=== PATIENT | male | born 1935 | race Caucasian/White ===

== ENCOUNTER → 2021-04-30 07:36 | Outpatient (CLI) | payer MEDICARE, SELFPAY ==
[2021-04-23 09:27] VITALS: BMI 25.4
--- NOTE | 2021-04-30 07:40 | ECHOD_ITS ---
Reason For Study: Chest pain Procedure This was a 2D Doppler, Color Flow transthoracic echocardiogram. Exam performed in department. Left Ventricle Normal LV size. Left ventricular systolic function is normal. The estimated ejection fraction is 60 %. Stage 1 diastolic dysfunction. No regional wall motion abnormalities noted. Right Ventricle Normal RV size. Normal systolic function. Atria Normal left atrium. Normal right atrium. Mitral Valve There is mild mitral annular calcification. Trivial mitral valve insufficiency. Tricuspid Valve Normal tricuspid valve. Mild tricuspid valve insufficiency. Pulmonary artery systolic pressure is 30 mmHg. Aortic Valve Trisinus/trileaflet aortic valve. Mild focal aortic valve calcification. Pulmonic Valve Normal pulmonic valve. Great Vessels Normal aortic root. The pulmonary artery is normal size. Normal inferior vena cava. Pericardium/Pleural No pericardial effusion. MMode/2D Measurements & Calculations LVIDd: 4.4 cm IVSd: 1.1 cm Ao root diam: 3.4 cm LVIDs: 2.3 cm LVPWd: 1.1 cm RVDd: 3.3 cm FS: 46.6 % LAV(MOD-bp): 41.4 ml LVAd ap4: 31.1 cm2 SV(MOD-sp4): 59.1 ml LAV(MOD-bp) Indexed: 20.0 ml/m2 LVLd ap4: 8.2 cm LAV(MOD-sp2): 33.1 ml EDV(MOD-sp4): 93.3 ml LAV(MOD-sp4): 52.3 ml EDV(sp4-el): 99.4 ml LVAs ap4: 16.5 cm2 LVLs ap4: 6.7 cm ESV(MOD-sp4): 34.2 ml ESV(sp4-el): 34.5 ml EF(MOD-sp4): 63.3 % EF(sp4-el): 65.3 % SV(sp4-el): 64.9 ml LA A4 area: 18.6 cm2 LA dimension(2D): 4.2 cm RA A4 area: 15.5 cm2 Doppler Measurements & Calculations MV E max willis: 82.6 cm/sec Lat Peak E' Willis: 11.4 cm/sec Med Peak E' Willis: 7.4 cm/sec MV A max willis: 107.4 cm/sec E/E' lat: 7.2 E/E' med: 11.1 MV E/A: 0.77 Ao V2 max: 157.8 cm/sec LV V1 max: 112.2 cm/sec PA V2 max: 95.7 cm/sec Ao max P.0 mmHg LV V1 max P.0 mmHg TR max willis: 256.2 cm/sec TR max P.3 mmHg ECHO/Echo Complete Interpretation Summary Normal LV size. Left ventricular systolic function is normal. The estimated ejection fraction is 60 %. Stage 1 diastolic dysfunction. Mild tricuspid valve insufficiency. Pulmonary artery systolic pressure is 30 mmHg. Ordering Physician: Mani Alvares Referring Physician: Francisco Juarez Performed By: Rimma Nava RDCS
== END ==
PROVIDERS: PCP Family Medicine; Referring Provider Internal Medicine Cardiovascular Disease; Visit Provider Internal Medicine Cardiovascular Disease
DX: I48.0 Paroxysmal atrial fibrillation (principal)
CPT/HCPCS: 93306

== ENCOUNTER 2021-05-05 08:54 | Day surgery (SDC) | payer MEDICARE, SELFPAY ==
[2021-04-23 09:27] VITALS: BMI 25.4
--- NOTE | 2021-04-23 10:44 | RAD_ITS ---
STUDY: X-RAY CHEST REASON FOR EXAM: Male, 85 years old. Irregular heartbeat TECHNIQUE: Frontal and lateral views of the chest COMPARISON: None. FINDINGS: The lungs are clear and expanded. There is no demonstrated pleural abnormality. Normal size heart. Normal mediastinum and ladarius. Normal visualized pulmonary arteries. Normal visualized aortic arch and descending thoracic aorta. Normal visualized thoracic spine. Normal visualized ribs, clavicles, and shoulders. There is no demonstrated abnormality of the visualized soft tissue structures of the upper abdomen. RAD/Chest PA and Lateral IMPRESSION: Normal x-ray examination of the chest. Electronically Signed: Percy Peralta MD at 17:00 EDT Tel , Service support ,
[2021-04-23 11:20] LABS: Absolute Lymphocyte Count 2.33 X10^3/uL (0.83-4.51); Absolute Neutrophil Count 3.6 X10^3/uL (2.0-7.7); Basophil# 0.04 X10^3/uL; Basophil% 0.6 % (0-1); Eosinophil# 0.25 X10^3/uL; Eosinophils% 3.7 % (0-5); Hematocrit 41.8 % (40-54); Hemoglobin 13.7 g/dL (13.0-16.5); Lymphocyte # 2.33 X10^3/ul (0.83-4.51); Lymphocyte % 34.8 % (19-41); Mean Corp Hgb Conc 32.8 g/dL (32-36); Mean Corpuscular Hgb 31.6 pg (27.0-32.0); Mean Corpuscular Volume 96.5 fL (80-94); Mean Platelet Vol. 9.2 fl (6.2-12.0); Monocyte# 0.48 X10^3/uL; Monocyte% 7.2 % (0-10); NRBC Flagged by Analyzer 0 % (0-5); Neutrophil # 3.58 X10^3/uL (2.7-7.7); Neutrophil % 53.6 % (47-70); Platelet Count 194 K/mm3 (150-450); RBC Distribution Width CV 13.8 % (11.6-14.6); RBC Distribution Width SD 48.9 fl (35.1-43.9); Red Blood Count 4.33 M/mm3 (4.6-6.2); White Blood Count 6.7 K/mm3 (4.4-11.0)
[2021-04-23 11:46] LABS: Anion Gap 3 (5-15); BUN 19 mg/dL (7-18); BUN/Creat Ratio 27.5 RATIO (10-20); Calcium,Total 9.1 mg/dL (8.5-10.1); Chloride 107 mmol/L (98-107); Creatinine, Serum 0.69 mg/dL (0.70-1.30); EST Glomerular Filtration Rate 116 mL/min (>60); Est Glom Filt Rate - Afr Amer 140 mL/min (>60); Glucose 144 mg/dL (74-106); Potassium 4.2 mmol/L (3.5-5.1); Sodium Level 140 mmol/L (136-145)
[2021-05-02 08:17] VITALS: BMI 25.4
--- NOTE | 2021-05-05 10:35 | CL.D_ITS ---
Patient Name: MANUELITO BAI Study Date: 05/05/2021 Performing: Mani Alvares MD Ht: 72.04 inches 183 cm : 1935 Wt: 187.39 lbs 85 kg Age: 85 Gender: male BSA: 2.07 PROCEDURE(S) PERFORMED [id number]/LV CLINICAL PROFILE AND INDICATIONS Indications: Suspected CAD Heart Failure: None Stress/Imaging Stress/Image Study Performed: No CAD Presentations: Stable angina. CONCLUSIONS Mild to moderate diffuse coronary artery disease with no areas of high-grade stenosis noted. Preserv ed left ventricular systolic function. RECOMMENDATIONS Medical therapy DESCRIPTION OF PROCEDURE The patient arrived to the procedure lab. The risks and benefits of the procedure as well as a full d escription of our services here and current unavailability of surgical backup were fully explained to the patient and/or their significant other prior to the catheterization. The Timeout was completed, verifying the correct patient and procedure. The patient's procedural site was prepped and draped in the usual fashion. Local anesthetic was given subcutaneously to right radial region with Lidocaine 2% . Using a modified Seldinger technique, arterial access was obtained via the right radial artery, a 6 Fr sheath was inserted. Left Coronary Artery selective angiography was performed in multiple views u sing a 5 Fr. 4.0 [place] catheter. Right Coronary Artery selective angiography was then performed in mu ltiple views using a 5 Fr. 4.0 [place] catheter. Left Ventriculography was performed in [place] projection using a 5 Fr. [place] catheter. LV to AO pullback pressures were then recorded.The arterial sheath was pulled and a TR Band was applied for hemostasis CORONARY ANGIOGRAPHY DOMINANCE: Right Dominant LEFT HEART ASSESSMENT Left Ventricular Ejection Fraction: by LV Gram 60 % Normal LV wall motion Normal Left Ventricular systolic function LEFT MAIN: Mild calcification, Angiographically normal LEFT ANTERIOR DESCENDING ARTERY: Mild luminal irregularities less than 30% DIAGONAL 1: Proximal - Moderate luminal irregularities up to 50% CIRCUMFLEX ARTERY: MID CIRC: Moderate luminal irregularities up to 50% RIGHT CORONARY ARTERY: Mild luminal irregularities RT PLV: Moderate luminal irregularities up to 50% RT PDA: Mid - Moderate luminal irregularities up to 50% COMPLICATIONS No Complications PROCEDURE MEDICATIONS Versed 1 mg IV Fentanyl 25 mcg IV Oxygen: 2 L/min via nasal cannula Heparin given IA 05/05/2021 10:17:38 Verapamil 2.5mg, Ntg 100mcgs, 3000 units of Heparin given IA 05/05/2021 10:17:38 SUMMARY OF HEMODYNAMIC DATA Time AIR REST ECG 09:17:57 AO 83/48 (63) SA 10:17:10 LV 87/1, 6 10:23:06 LV 95/3, 8 10:23:35 LV 84/3, 10 10:24:20 LV 100/3, 10 10:24:41 LVp 97/2, 8 10:24:46 AOp 98/46 (68) 10:24:51 RM AIR REST 10:34:58 Signed By Mani Alvares MD On 05/05/2021 10:35:56 AM Signed By Mani Alvares MD On 05/05/2021 10:34:26 AM Mani Alvares MD
== END 2021-05-05 12:15 | disposition home or self-care (01) ==
LOC: CLSP 08:54
PROVIDERS: PCP Family Medicine; Referring Provider Internal Medicine Cardiovascular Disease; Visit Provider Internal Medicine Cardiovascular Disease
DX: I25.119 Atherosclerotic heart disease of native coronary artery with unspecified angina pectoris (principal); R07.9 Chest pain, unspecified; I48.0 Paroxysmal atrial fibrillation; I50.9 Heart failure, unspecified; I45.10 Unspecified right bundle-branch block; E78.5 Hyperlipidemia, unspecified; I11.0 Hypertensive heart disease with heart failure
CPT/HCPCS: 36415; 71046; 80048; 85025; 93458; 99152; 99153; Q9967; A4216; C1769; C1894